=== PATIENT | male | born 1955 | race Caucasian/White ===

== ENCOUNTER → 2016-12-01 | Outpatient (CLI) | payer OTHER ==
[~2016-12-01] MED LIST: AMBI5TAB PO; DOCU1CAP39 PO; NYST1000 SWISH-SWAL; OXYC-395 PO; VITA100T2 PO
--- NOTE | 2016-12-01 10:30 | RADRPT ---
EXAM DATE/TIME: 12/01/2016 00:00 [facility] COMPARISON: BA SWALLOW W/SPEECH PATHOLOGY, June 12, 2016, 14:30. INDICATIONS : Dysphagia. FLUORO TIME: 1.6 minutes IMAGE COUNT: 0 CONTRAST: Dose as prescribed by speech pathologist. MEDICAL HISTORY : Metastatic cancer. Lung Cancer. Smoker. SURGICAL HISTORY : None. ENCOUNTER: Subsequent ACUITY: 4 - 6 months PAIN SCORE: 0/10 LOCATION: Esophagus. FINDINGS: A modified barium swallow was performed with thin barium, honey-thick barium, and barium-coated puddi ng. The patient demonstrated penetration of the supraglottic larynx as well as nasopharyngeal reflux with all substances. No tracheal aspiration occurred. CONCLUSION: Penetration of the supraglottic larynx as well as nasopharyngeal reflux with thin barium, honey-thick barium and barium-coated pudding. No tracheal aspiration occurred. Brandon Phipps MD on December 01, 2016 at 10:27 Board Certified Radiologist. This report was verified electronically.
== END ==
LOC: HRAD 09:48
PROVIDERS: ATTEND Family Medicine
DX: R13.10 Dysphagia, unspecified (principal); C79.9 Secondary malignant neoplasm of unspecified site
CPT/HCPCS: 74230; 92611; G8996; G8997; G8998

== ENCOUNTER 2017-02-01 07:26 | Emergency (ER) | payer OTHER ==
[~2017-02-01] VITALS: Ht 177.8 cm; Wt 49.0 kg
[2017-02-01 07:31] VITALS: BP 100/58; PULSE 89; RESP 16; TEMP 98.3; O2SAT 99
[2017-02-01] MEDS ORDERED: TAMS0.4C4 PO (08:07)
[2017-02-01] MEDS ORDERED: PROS5TAB PO (08:07)
[2017-02-01] MEDS ORDERED: ALPR0.25 PO (08:07)
[2017-02-01] MEDS ORDERED: OXYC-395 PO (08:07)
[2017-02-01] MEDS ORDERED: FENT50DI T-DERMAL (08:07)
--- NOTE | 2017-02-01 08:38 | PD ---
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 States he awoke this morning and administers feedings without consultation however when he went to flush the device he was unable to pull or push any fluids. Denies any infection around the feeding tube site. Denies any nausea vomiting diarrhea or fever. PFSH Past Medical History Hx Anticoagulant Therapy: No Cancer: Yes (hx ca neck, LUNG) Cardiovascular Problems: No Chemotherapy: Yes Diabetes: No Diminished Hearing: No Endocrine: Yes Genitourinary: No Hepatitis: No Hiatal Hernia: No Immune Disorder: No Musculoskeletal: No Neurologic: No Psychiatric: No Reproductive: No Respiratory: Yes (SMOKER, LUNG CA) Seizures: Yes (LAST SEIZURE 10/26 DUE TO ALCOHOL WITHDRAWAL) Thyroid Disease: Yes Past Surgical History Abdominal Surgery: No Body Medical Devices: GASTROSTOMY TUBE Cardiac Surgery: No Ear Surgery: No Endocrine Surgery: No Eye Surgery: No Genitourinary Surgery: No Gynecologic Surgery: No Joint Replacement: No Oral Surgery: Yes (teeth removal) Pacemaker: No Thoracic Surgery: No Tonsillectomy: Yes (DENIES) Other Surgery: Yes (TONSILLECTOMY PORT INSERTION) Social History Alcohol Use: No (FORMER) Tobacco Use: Yes (1 PPD/STARTED AGE 35) Substance Use: No Allergies-Medications (Allergen,Severity, Reaction): Coded Allergies: No Known Allergies (Verified , 02/01/17) Reported Meds & Prescriptions Reported Meds & Active Scripts Active Reported Fentanyl Patch 72 HR (Fentanyl) 50 Mcg/Hr Patch 50 Mcg T-DERMAL Q72H Remove old patch when new one placed. Tamsulosin (Tamsulosin HCl) 0.4 Mg Cap 0.4 Mg PO HS Proscar (Finasteride) 5 Mg Tab 5 Mg PO DAILY Do not crush. Alprazolam 0.25 Mg Tab 0.25 Mg PO DAILY Oxycodone (Oxycodone HCl) 10 Mg Tab 10 Mg PO Q4HR Review of Systems General / Constitutional: No: Fever Eyes: No: Visual changes HENT: No: Headaches Cardiovascular: No: Chest Pain or Discomfort Respiratory: No: Shortness of Breath Gastrointestinal: No: Abdominal Pain Genitourinary: No: Dysuria Musculoskeletal: No: Pain Skin: No Rash Neurologic: No: Weakness Psychiatric: No: Depression Endocrine: No: Polydipsia Hematologic/Lymphatic: No: Easy Bruising Physical Exam Narrative GENERAL: Failure to thrive. SKIN: Focused skin assessment warm/dry. HEAD: Normocephalic. EYES: No scleral icterus. No injection or drainage. NECK: Supple, trachea midline. No JVD or lymphadenopathy. CARDIOVASCULAR: Regular rate and rhythm without murmurs, gallops, or rubs. RESPIRATORY: Breath sounds equal bilaterally. No accessory muscle use. GASTROINTESTINAL: Abdomen soft, non-tender, nondistended. Feeding tube in place without any erythema or saline change. MUSCULOSKELETAL: No cyanosis, or edema. BACK: Nontender without obvious deformity. No CVA tenderness. Data Data Last Documented VS Vital Signs Date Time Temp Pulse Resp B/P Pulse Ox O2 Delivery O2 Flow Rate FiO2 02/01/17 07:31 98.3 89 16 100/58 99 MDM Medical Decision Making Medical Screen Exam Complete: Yes Emergency Medical Condition: Yes Differential Diagnosis Medical devices failure, gastric obstruction Narrative Course Assessment and plan discussed with patient and friend at bedside. Attempts were made to push or pull air. Mechanical valve was removed and attempts were made to perform water which went without complication. Replacement valve obtained from [facility]. And used without complication Diagnosis Primary Impression: Feeding tube dysfunction Qualified Code: T85.598A - Feeding tube dysfunction, initial encounter Patient Instructions: General Instructions Additional Instructions: Encouraged regular cleaning and changing out of feeding tube components Med/Other Pt SpecificInfo: No Meds Exist/No RX given Disposition: 01 DISCHARGE HOME Condition: Good Jake Ramirez MD Feb 01, 2017 08:38
[2017-02-01 09:08] VITALS: BP 104/60; PULSE 86; RESP 16; O2SAT 99
== END 2017-02-01 09:08 | disposition home or self-care (01) ==
LOC: PHED 07:26
DX: T85.598A Other mechanical complication of other gastrointestinal prosthetic devices, implants and grafts, initial encounter (principal); E07.9 Disorder of thyroid, unspecified; F17.200 Nicotine dependence, unspecified, uncomplicated; Z43.1 Encounter for attention to gastrostomy; Z85.89 Personal history of malignant neoplasm of other organs and systems; Z85.118 Personal history of other malignant neoplasm of bronchus and lung; Z86.69 Personal history of other diseases of the nervous system and sense organs
CPT/HCPCS: 99282

== ENCOUNTER 2017-02-04 14:54 | Emergency (ER) | payer OTHER ==
[~2017-02-04] VITALS: Ht 177.8 cm; Wt 48.9 kg
[~2017-02-04 14:54] MED LIST changes: +ALPR0.25 PO; -AMBI5TAB PO; -DOCU1CAP39 PO; +FENT50DI T-DERMAL; -NYST1000 SWISH-SWAL; +PROS5TAB PO; +TAMS0.4C4 PO; -VITA100T2 PO
[2017-02-04 15:02] VITALS: BP 105/61; PULSE 92; RESP 18; TEMP 97.9; O2SAT 100
--- NOTE | 2017-02-04 15:51 | PD ---
HPI Chief Complaint: Injury Time Seen by Provider: 15:28 Travel History International Travel<30 days: No Contact w/Intl Traveler<30days: No Traveled to known affect area: No History of Present Illness HPI 61-year-old male complains of left fifth finger injury. Patient states that a car door slam on the left fifth finger 5 days ago. Patient has not seen any physician until today. 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 Patient receiving chemotherapy now. Patient was seen by oncologist this morning and was given IV antibiotics through the port. Patient was advised by oncologist to go to ED for x-ray of the left hand. Patient denies any fever chills. Patient has history of anorexia, dysphagia, chronic neck stiffness, malnutrition, chronic pain, hypertension, hypothyroidism. Patient received chemotherapy this morning also. PFSH Past Medical History Hx Anticoagulant Therapy: No Cancer: Yes (hx ca neck, LUNG) Cardiovascular Problems: No Chemotherapy: Yes Diabetes: No Diminished Hearing: No Endocrine: Yes Genitourinary: No Hepatitis: No Hiatal Hernia: No Immune Disorder: No Musculoskeletal: No Neurologic: No Psychiatric: No Reproductive: No Respiratory: Yes (SMOKER, LUNG CA) Seizures: Yes (LAST SEIZURE 10/26 DUE TO ALCOHOL WITHDRAWAL) Thyroid Disease: Yes Tetanus Vaccination: < 5 Years Influenza Vaccination: Yes Past Surgical History Abdominal Surgery: No Body Medical Devices: GASTROSTOMY TUBE Cardiac Surgery: No Ear Surgery: No Endocrine Surgery: No Eye Surgery: No Genitourinary Surgery: No Gynecologic Surgery: No Joint Replacement: No Oral Surgery: Yes (teeth removal) Pacemaker: No Thoracic Surgery: No Tonsillectomy: Yes (DENIES) Other Surgery: Yes (TONSILLECTOMY PORT INSERTION) Social History Alcohol Use: No (FORMER) Tobacco Use: Yes (1 PPD/STARTED AGE 35) Substance Use: No Allergies-Medications (Allergen,Severity, Reaction): Coded Allergies: No Known Allergies (Verified , 02/01/17) Reported Meds & Prescriptions Reported Meds & Active Scripts Active Reported Fentanyl Patch 72 HR (Fentanyl) 50 Mcg/Hr Patch 50 Mcg T-DERMAL Q72H Remove old patch when new one placed. Tamsulosin (Tamsulosin HCl) 0.4 Mg Cap 0.4 Mg PO HS Proscar (Finasteride) 5 Mg Tab 5 Mg PO DAILY Do not crush. Alprazolam 0.25 Mg Tab 0.25 Mg PO DAILY Oxycodone (Oxycodone HCl) 10 Mg Tab 10 Mg PO Q4HR Review of Systems General / Constitutional: No: Fever Eyes: No: Visual changes HENT: No: Headaches Cardiovascular: No: Chest Pain or Discomfort Respiratory: No: Shortness of Breath Gastrointestinal: No: Abdominal Pain Genitourinary: No: Dysuria Musculoskeletal: Positive: Pain Skin: No Rash Neurologic: No: Weakness Psychiatric: No: Depression Endocrine: No: Polydipsia Hematologic/Lymphatic: No: Easy Bruising Physical Exam Narrative GENERAL: Well-nourished, well-developed patient. SKIN: Focused skin assessment warm/dry. HEAD: Normocephalic. EYES: No scleral icterus. No injection or drainage. NECK: Supple, trachea midline. No JVD or lymphadenopathy. CARDIOVASCULAR: Regular rate and rhythm without murmurs, gallops, or rubs. RESPIRATORY: Breath sounds equal bilaterally. No accessory muscle use. GASTROINTESTINAL: Abdomen soft, non-tender, nondistended. MUSCULOSKELETAL: No cyanosis, or edema. BACK: Nontender without obvious deformity. No CVA tenderness. Patient has macerated ulcer wound of the left fifth finger involvement proximal and middle phalange with redness swelling and discharge. Data Data Last Documented VS Vital Signs Date Time Temp Pulse Resp B/P Pulse Ox O2 Delivery O2 Flow Rate FiO2 02/04/17 15:02 97.9 92 18 105/61 100 Room Air Orders Finger ([id number]) (02/04/17 15:37) MDM Medical Decision Making Medical Screen Exam Complete: Yes Emergency Medical Condition: Yes Differential Diagnosis Differential diagnosis including cellulitis, abscess, osteomyelitis. Narrative Course Patient refuses admission. Patient states that he has prescription waiting for him at local pharmacy from his physician. Patient will follow-up with his doctor. Diagnosis Primary Impression: Cellulitis of finger of left hand Patient Instructions: General Instructions Additional Instructions: Patient refuses admission. Patient wants to go home and take medication and follow-up with his personal physician. Patient states that his physician called prescription in to local pharmacy for him already. Med/Other Pt SpecificInfo: No Change to Meds Disposition: 01 DISCHARGE HOME Condition: Stable Wan Omer MD Feb 04, 2017 15:51
--- NOTE | 2017-02-04 16:09 | RADRPT ---
EXAM DATE/TIME: 02/04/2017 15:48 [facility] COMPARISON: No previous studies available for comparison. INDICATIONS : Trauma, smashed left fifth digit in door. MEDICAL HISTORY : None. SURGICAL HISTORY : None. ENCOUNTER: Initial ACUITY: 3 days PAIN SCORE: 1/10 LOCATION: Left fifth digit. FINDINGS: Examination of the fifth digit of the left hand demonstrates no evidence of fracture or dislocation. No radiopaque foreign bodies are seen. Diffuse soft tissue swelling involving the fifth finger. CONCLUSION: 1. Soft tissue swelling. No fracture or dislocation. Ady Conde Jr., MD on February 04, 2017 at 16:06 Board Certified Radiologist. This report was verified electronically.
== END 2017-02-04 16:21 | disposition home or self-care (01) ==
LOC: PHED 14:54
DX: L03.012 Cellulitis of left finger (principal); C76.0 Malignant neoplasm of head, face and neck; C78.00 Secondary malignant neoplasm of unspecified lung; I10 Essential (primary) hypertension; E03.9 Hypothyroidism, unspecified; E46 Unspecified protein-calorie malnutrition; F17.200 Nicotine dependence, unspecified, uncomplicated; Z87.19 Personal history of other diseases of the digestive system; Z87.39 Personal history of other diseases of the musculoskeletal system and connective tissue; W23.1XXA Caught, crushed, jammed, or pinched between stationary objects, initial encounter
CPT/HCPCS: 73140; 99283

== ENCOUNTER 2017-05-17 14:40 | Emergency (ER) | payer OTHER ==
[~2017-05-17] VITALS: Ht 177.8 cm; Wt 48.0 kg
[2017-05-17 14:42] VITALS: BP 98/69; PULSE 96; RESP 16; TEMP 98.2; O2SAT 96
[2017-05-17 16:31] LABS: AUTOMATED NEUTROPHIL # 5.5 TH/MM3 (1.8-7.7); BASOPHIL % 0.4 % (0.0-2.0); EOSINOPHIL % 0.3 % (0.0-4.0); HEMATOCRIT 31.2 % (39.0-51.0); HEMO FLAGS DIFF FINAL; LYMPH % 5.3 % (9.0-44.0); LYMPHOCYTE # 0.4 TH/MM3 (1.0-4.8); MEAN CELL VOLUME 88.1 FL (80.0-100.0); MEAN CORPUSCULAR HEMOGLOBIN 28.7 PG (27.0-34.0); MEAN CORPUSCULAR HGB CONC 32.6 % (32.0-36.0); MONO % 11.8 % (0.0-8.0); NEUT % 82.2 % (16.0-70.0); PLATELET COUNT 194 TH/MM3 (150-450); RED BLOOD COUNT 3.54 MIL/MM3 (4.50-5.90); RED CELL DISTRIBUTION WIDTH 19.3 % (11.6-17.2); WHITE BLOOD COUNT 6.7 TH/MM3 (4.0-11.0)
[2017-05-17 16:56] LABS: BICARBONATE 30.2 MEQ/L (21.0-32.0)
--- NOTE | 2017-05-17 17:14 | RADRPT ---
EXAM DATE/TIME: 05/17/2017 16:09 [facility] COMPARISON: No previous studies available for comparison. INDICATIONS : Wound check on left second digit. MEDICAL HISTORY : None. SURGICAL HISTORY : None. ENCOUNTER: Initial ACUITY: 1 day PAIN SCORE: 0/10 LOCATION: Right 2nd digit FINDINGS: There is soft tissue swelling of the second finger. No acute bony abnormality identified. CONCLUSION: 1. Soft tissue swelling of the second finger. Sandeep Christopher MD on May 17, 2017 at 17:10 Board Certified Radiologist. This report was verified electronically.
--- NOTE | 2017-05-17 17:24 | PD ---
HPI . wound to left 2nd digit Chief Complaint: Skin Problem Time Seen by Provider: 15:33 Travel History International Travel<30 days: No Contact w/Intl Traveler<30days: No Traveled to known affect area: No History of Present Illness HPI 61 year old male patient presents to the emergency department for evaluation wound to the 2nd digit on his left hand. The wound is extensive and covering the majority of the finger. Patient denies any fever, chills, chest pain, shortness breath, abdominal pain, nausea, vomiting, diarrhea. The patient has a history of lung cancer and is on chemotherapy currently. PFSH Past Medical History Hx Anticoagulant Therapy: No Cancer: Yes (hx ca neck, LUNG) Cardiovascular Problems: No Chemotherapy: Yes Diabetes: No Diminished Hearing: No Endocrine: Yes Genitourinary: No Hepatitis: No Hiatal Hernia: No Immune Disorder: No Musculoskeletal: No Neurologic: No Psychiatric: No Reproductive: No Respiratory: Yes Immunizations Current: No Seizures: Yes (LAST SEIZURE 10/26 DUE TO ALCOHOL WITHDRAWAL) Thyroid Disease: Yes Past Surgical History Abdominal Surgery: No Body Medical Devices: GASTROSTOMY TUBE Cardiac Surgery: No Ear Surgery: No Endocrine Surgery: No Eye Surgery: No Genitourinary Surgery: No Gynecologic Surgery: No Joint Replacement: No Oral Surgery: Yes (teeth removal) Pacemaker: No Thoracic Surgery: No Tonsillectomy: Yes Other Surgery: Yes Social History Alcohol Use: No (FORMER) Tobacco Use: Yes (1 PPD/STARTED AGE 35) Substance Use: No Allergies-Medications (Allergen,Severity, Reaction): Coded Allergies: No Known Allergies (Verified , 02/01/17) Reported Meds & Prescriptions Reported Meds & Active Scripts Active Reported Fentanyl Patch 72 HR (Fentanyl) 50 Mcg/Hr Patch 50 Mcg T-DERMAL Q72H Remove old patch when new one placed. Tamsulosin (Tamsulosin HCl) 0.4 Mg Cap 0.4 Mg PO HS Proscar (Finasteride) 5 Mg Tab 5 Mg PO DAILY Do not crush. Alprazolam 0.25 Mg Tab 0.25 Mg PO DAILY Oxycodone (Oxycodone HCl) 10 Mg Tab 10 Mg PO Q4HR Review of Systems Except as stated in HPI: all other systems reviewed are Neg Physical Exam Narrative GENERAL: Well-nourished, well-developed 61 year old male patient that appears much older than stated age. SKIN: Left 2nd digit has a purulent draining wound covering the majority of the finger. HEAD: Normocephalic. Atraumatic. EYES: No scleral icterus. No injection or drainage. NECK: Supple, trachea midline. No JVD or lymphadenopathy. CARDIOVASCULAR: Regular rate and rhythm without murmurs, gallops, or rubs. Delayed capillary refill at 5 seconds noted to the 2nd digit on the left hand. RESPIRATORY: Breath sounds equal bilaterally. No accessory muscle use. GASTROINTESTINAL: Abdomen soft, non-tender, nondistended. MUSCULOSKELETAL: Full range of motion noted to left hand. Left 2nd digit had full range of motion despite large draining wound. Data Data Last Documented VS Vital Signs Date Time Temp Pulse Resp B/P (MAP) Pulse Ox O2 Delivery O2 Flow Rate FiO2 05/17/17 17:00 05/17/17 14:42 98.2 96 16 96 Orders Orders Finger ([id number]) (05/17/17 15:51) Complete Blood Count With Diff (05/17/17 15:51) Wound Culture And Gram Stain (05/17/17 15:51) Basic Metabolic Panel (Bmp) (05/17/17 15:51) Iv Access Insert/Monitor (05/17/17 15:51) Labs Laboratory Tests Test 05/17/17 16:05 White Blood Count 6.7 TH/MM3 Red Blood Count 3.54 MIL/MM3 Hemoglobin 10.2 GM/DL Hematocrit 31.2 % Mean Corpuscular Volume 88.1 FL Mean Corpuscular Hemoglobin 28.7 PG Mean Corpuscular Hemoglobin Concent 32.6 % Red Cell Distribution Width 19.3 % Platelet Count 194 TH/MM3 Mean Platelet Volume 8.2 FL Neutrophils (%) (Auto) 82.2 % Lymphocytes (%) (Auto) 5.3 % Monocytes (%) (Auto) 11.8 % Eosinophils (%) (Auto) 0.3 % Basophils (%) (Auto) 0.4 % Neutrophils # (Auto) 5.5 TH/MM3 Lymphocytes # (Auto) 0.4 TH/MM3 Monocytes # (Auto) 0.8 TH/MM3 Eosinophils # (Auto) 0.0 TH/MM3 Basophils # (Auto) 0.0 TH/MM3 CBC Comment DIFF FINAL Differential Comment Blood Urea Nitrogen 7 MG/DL Creatinine 0.55 MG/DL Random Glucose 82 MG/DL Calcium Level 8.6 MG/DL Sodium Level 130 MEQ/L Potassium Level 4.0 MEQ/L Chloride Level 95 MEQ/L Carbon Dioxide Level 30.2 MEQ/L Anion Gap 5 MEQ/L Estimat Glomerular Filtration Rate 151 ML/MIN MDM Medical Decision Making Medical Screen Exam Complete: Yes Emergency Medical Condition: Yes Differential Diagnosis Differential diagnosis includes but not limited to cellulitis, delayed healing, abscess, AMA Narrative Course 61-year-old male patient presents to the emergency for evaluation of left 2nd digit wound. Wound culture obtained. X-ray of the left 2nd digit ordered. IV obtained and blood work sent to the lab. CBC and BMP ordered and pending. Patient is still a smoker despite being on chemotherapy for lung cancer. Patient became anxious and needed to leave for a cigarette. Patient educated on the risks of leaving against medical advise, including losing his finger, serious infection, becoming septic, and . Patient still opted to leave AMA. Diagnosis Primary Impression: Left against medical advice Patient Instructions: General Instructions Departure Forms: Tests/Procedures Disposition: 07 AGAINST MEDICAL ADVICE Condition: Stable Feilcitas Grossman May 17, 2017 17:24
== END 2017-05-17 17:26 | disposition left against medical advice (07) ==
LOC: NEPD 14:40
DX: S61.201A Unspecified open wound of left index finger without damage to nail, initial encounter (principal); B95.61 Methicillin susceptible Staphylococcus aureus infection as the cause of diseases classified elsewhere; C34.90 Malignant neoplasm of unspecified part of unspecified bronchus or lung; F17.210 Nicotine dependence, cigarettes, uncomplicated; X58.XXXA Exposure to other specified factors, initial encounter
CPT/HCPCS: 73140; 80048; 85025; 86403; 87070; 87186; 87205; 99284